=== PATIENT | male | born 1965 | race Two or more races ===

== ENCOUNTER 2016-11-29 21:09 | Emergency (ER) | payer SELFPAY ==
[~2016-11-29] VITALS: Ht 175.3 cm; Wt 86.2 kg
[2016-11-29] MEDS ORDERED: NKM (21:22)
[2016-11-29 21:25] VITALS: BP 126/88
[2016-11-29] MEDS ORDERED: POLYTRIM OP SOL10 ML OPHTHALM (22:00)
[2016-11-29] MEDS ORDERED: Norco 5mg/325mg tab ORAL ONE (22:00)
[2016-11-29] MEDS ORDERED: HYDROCODON-ACE1 EA15 ORAL (22:00)
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
[2016-11-29 22:20] VITALS: BP 126/88
== END 2016-11-29 22:20 | disposition home or self-care (01) ==
LOC: EMR 21:45
DX: H16.9 Unspecified keratitis (principal); F10.129 Alcohol abuse with intoxication, unspecified
CPT/HCPCS: 99284